=== PATIENT | female | born 1980 | race Caucasian/White ===

== ENCOUNTER 2018-01-05 08:36 | Day surgery (SDC) | payer OTHER ==
[2018-01-05 09:04] LABS: HEMATOCRIT 44.3 % (36.0-47.0); HEMOGLOBIN 14.6 g/dl (12.0-15.5); MEAN CORPUSCULAR HEMOGLOBIN 28.3 pg (27.0-33.0); MEAN CORPUSCULAR VOLUME 85.9 fl (80.0-96.0); PLATELET COUNT, AUTOMATED 235 10^3/uL (150-450); RED BLOOD COUNT 5.16 10^6/uL (4.00-5.40); RED CELL DISTRIBUTION WIDTH 12.8 % (11.5-14.5); WHITE BLOOD COUNT 5.9 10^3/uL (4.0-10.0)
[2018-01-05] MEDS ORDERED: dexameTHASONE 4 MG/ML 1ML VIAL (J1100) As Ordered (09:07)
[2018-01-05] MEDS ORDERED: ONDANSETRON 4MG/2ML VIAL (J2405) As Ordered (09:07)
[2018-01-05] MEDS ORDERED: LIDOCAINE 2% INJ 100 MG/5 ML SDV (FOR ANES.) As Ordered (09:07)
[2018-01-05] MEDS ORDERED: PROPOFOL 200 MG/20 ML VIAL As Ordered (09:07)
[2018-01-05] MEDS ORDERED: fentaNYL 100 MCG/2 ML INJECTION (J3010) As Ordered (09:08)
[2018-01-05] MEDS ORDERED: MIDAZOLAM INJ 2 MG/2 ML VIAL (J2250) As Ordered (09:08)
[2018-01-05 09:36] LABS: CONTROL LINE UCG INT CTR LINE PRESENT; URINE PREG TEST NEGATIVE (NEGATIVE)
[2018-01-05] MEDS: LR 1,000 ML IV (10:00)
[2018-01-05] MEDS: ACETAMINOPHEN 650 MG SUPP As Ordered (11:10)
[2018-01-05] MEDS: IODINE STRONG SOLN 15 ML BTL As Ordered (11:16)
[2018-01-05] MEDS: LIDOCAINE W/EPINEPHRINE 1% 20ML VIAL As Ordered (11:21)
[2018-01-05] MEDS ORDERED: METOCLOPRAMIDE INJ 10MG/2ML VIAL (J2765) IV (12:00)
[2018-01-05] MEDS ORDERED: LR 1,000 ML IV (12:00)
[2018-01-05] MEDS ORDERED: PERCOCET 5MG/325MG TAB PO ×2 (12:00→12:15)
[2018-01-05] MEDS: IBUPROFEN 800 MG TAB PO (12:00)
[2018-01-05] MEDS ORDERED: fentaNYL 100 MCG/2 ML INJECTION (J3010) IV (12:00)
[2018-01-05] MEDS: ONDANSETRON 4MG/2ML VIAL (J2405) IV (12:05)
== END 2018-01-05 13:09 | disposition home or self-care (01) ==
LOC: M SDC 08:36
DX: N85.00 Endometrial hyperplasia, unspecified (principal); Z79.899 Other long term (current) drug therapy
CPT/HCPCS: 57522

== ENCOUNTER → 2018-07-17 | Outpatient (CLI) | payer OTHER ==
[~2018-07-17] MED LIST: CLAR1TAB13 PO; COLA100C5 PO; GLUC500C5 PO; IBUP80TA PO; MULTCAP PO; OXYC1TAB23 PO; PRENTAB74 PO; TUMS500C PO; [UNRECOGNIZED DRUG - CODE] XX
--- NOTE | 2018-07-17 11:40 | REP ---
RIGHT KNEE: Six views of the right knee performed. There is no acute fracture or dislocation. No intrinsic osseous pathology is seen. Joint spaces are unremarkable. There is no joint effusion. IMPRESSION: Negative right knee series. Electronically Signed by Mayo Peters MD 07/17/2018 03:26 P
== END ==
LOC: M WUC 11:07
PROVIDERS: ATTEND Physician Assistant
DX: M25.561 Pain in right knee (principal)

== ENCOUNTER 2018-09-11 15:03 | Emergency (ER) | payer OTHER ==
[~2018-09-11] VITALS: Ht 149.9 cm; Wt 63.2 kg
[2018-09-11] MEDS ORDERED: NS 1,000 ML IV ONE (15:30)
[2018-09-11 15:46] LABS: BASO % 0.3 % (0.0-1.0); EOS # 0.1 10^3/uL (0.0-0.50); EOS % 0.8 % (0.0-3.0); HEMATOCRIT 43.6 % (36.0-47.0); HEMOGLOBIN 14.6 g/dl (12.0-15.5); LYMPH # 1.4 10^3/uL (1.5-4.5); LYMPH % 13.6 % (24.0-44.0); MEAN CORPUSCULAR HEMOGLOBIN 29.1 pg (27.0-33.0); MEAN CORPUSCULAR HGB CONC 33.5 g/dl (32.0-36.5); MEAN CORPUSCULAR VOLUME 86.9 fl (80.0-96.0); MONO # 0.4 10^3/uL (0.0-0.8); NEUTROPHILS # 8.2 10^3/uL (1.8-7.7); PLATELET COUNT, AUTOMATED 218 10^3/uL (150-450); RED BLOOD COUNT 5.02 10^6/uL (4.00-5.40); WHITE BLOOD COUNT 10.1 10^3/uL (4.0-10.0)
[2018-09-11 16:02] LABS: HCG, SERUM QUALITATIVE NEGATIVE (NEGATIVE)
[2018-09-11 16:11] LABS: ALBUMIN 3.8 GM/DL (3.2-5.2); ALT/SGPT 25 U/L (12-78); BILIRUBIN,TOTAL 0.4 MG/DL (0.2-1.0); BLOOD UREA NITROGEN 11 MG/DL (7-18); CALCIUM LEVEL 8.3 MG/DL (8.5-10.1); CARBON DIOXIDE LEVEL 26 MEQ/L (21-32); CHLORIDE LEVEL 108 MEQ/L (98-107); CREATININE FOR GFR 0.76 MG/DL (0.55-1.30); GLOMERULAR FILTRATION RATE > 60.0 (>60); GLUCOSE, FASTING 96 MG/DL (70-100); POTASSIUM SERUM 3.3 MEQ/L (3.5-5.1); SODIUM LEVEL 142 MEQ/L (136-145); TOTAL PROTEIN 8.2 GM/DL (6.4-8.2)
[2018-09-11] MEDS ORDERED: MECLIZINE 25 MG TABLET PO ONE (16:45)
[2018-09-11] MEDS ORDERED: MECL-68 PO (17:32)
[2018-09-11 17:37] VITALS: BP 153/82
--- NOTE | 2018-09-11 21:09 | ECGEPIP ---
[facility] - ED Test Date: 2018-09-11 Pat Name: NEVAEH RIVERA Department: Room: - Gender: Female [employer]: lotus : 1980 Requested By: Clara Short Order Number: [id number] Reading MD: Clara Short Measurements Intervals [place] Rate: 73 P: 27 NH: 142 QRS: 1 QRSD: 93 T: 31 QT: 391 QTc: 434 Interpretive Statements SINUS RHYTHM WITH SINUS ARRHYTHMIA No prior Electronically Signed on 09-11-2018 21:09:04 EDT by Clara Short
== END 2018-09-11 17:41 | disposition home or self-care (01) ==
LOC: EDBD 15:03 → M ED 15:03
DX: R42 Dizziness and giddiness (principal); Z79.899 Other long term (current) drug therapy; Z91.048 Other nonmedicinal substance allergy status

== ENCOUNTER 2019-04-18 14:09 | Emergency (ER) | payer OTHER ==
[~2019-04-18] VITALS: Ht 149.9 cm; Wt 60.8 kg
[~2019-04-18 14:09] MED LIST changes: +MECL-68 PO
[2019-04-18 14:10] VITALS: BP 138/78
== END 2019-04-18 16:22 | disposition left against medical advice (07) ==
LOC: M ED 14:09
DX: Z53.21 Procedure and treatment not carried out due to patient leaving prior to being seen by health care provider (principal)

== ENCOUNTER 2019-05-09 21:24 | Emergency (ER) | payer OTHER ==
[~2019-05-09] VITALS: Ht 149.9 cm; Wt 62.5 kg
[~2019-05-09 21:24] MED LIST changes: -MECL-68 PO; +MECL1TAB31 PO
[2019-05-09 21:25] VITALS: BP 154/85
[2019-05-09] MEDS ORDERED: MUCI600T31 PO (23:04)
[2019-05-09] MEDS ORDERED: guaiFENesin ER 600 MG TAB PO ONE (23:15)
[2019-05-09] MEDS ORDERED: ALBUTEROL 90 MCG/ACT 8GM HFA INHALER INH ONE (23:15)
--- NOTE | 2019-05-10 01:19 | REP ---
Clinical: Productive cough. Technique: PA and lateral. Comparison: None. Findings: Lingular atelectasis/early infiltrate is appreciated and should be correlated clinically. Remainder of lung parks are clear. No effusion. No pneumothorax. Mediastinum and cardiac silhouette normal. Skeletal structures intact. Impression: Lingular atelectasis/infiltrate. Follow-up to resolution. Electronically Signed by Mars Pike MD 05/10/2019 01:11 A
--- NOTE | 2019-05-11 09:43 | ED PDOC ---
Post-Departure Follow-Up kellee garcia faxed formla report of cxr for fu savannag Ernestina Rodriguez MD May 11, 2019 09:43
== END 2019-05-09 23:18 | disposition home or self-care (01) ==
LOC: M ED 21:24
DX: J20.9 Acute bronchitis, unspecified (principal); J98.11 Atelectasis; Z91.048 Other nonmedicinal substance allergy status; R05 Cough; R06.02 Shortness of breath

== ENCOUNTER → 2019-06-10 | Outpatient (CLI) | payer OTHER ==
[~2019-06-10] MED LIST changes: +MUCI600T31 PO
--- NOTE | 2019-06-10 17:27 | REP ---
CHEST, TWO VIEWS: Two views of the chest are performed. COMPARISON: 05/09/2019. The previously noted lingular infiltrate/atelectasis has improved. However, there is residual opacity. Right lung remains clear. Heart is normal in size. Mediastinal silhouette is unchanged. Visualized osseous structures are unremarkable. IMPRESSION: Improved lingular infiltrate/atelectasis with mild residual. Recommend continued followup to resolution. If the density does not completely resolve, CT of the chest would be recommended. Electronically Signed by Mayo Peters MD 06/11/2019 08:18 P
== END ==
LOC: M RAD 14:52
PROVIDERS: ATTEND Nurse Practitioner Family
DX: R91.8 Other nonspecific abnormal finding of lung field (principal)

== ENCOUNTER → 2019-06-24 | Outpatient (CLI) | payer OTHER ==
--- NOTE | 2019-06-24 19:42 | REP ---
PA and lateral chest for follow up of lingular infiltrate: Comparisons are 05/09/2019 and 06/10/2019. There is persisting density in the lingular segment of the left upper lobe that has improved from 05/09/2019 but is unchanged from 06/10/2019. The remainder the lung parks are clear. No pleural effusions. The cardiac size is normal. The warner, mediastinum, skeletal structures are unremarkable. Impression: Persisting density in the lingular segment of the left upper lobe, unchanged from 06/10/2019. Electronically Signed by Mayo Garcia MD 06/24/2019 07:34 P
== END ==
LOC: M RAD 14:23
PROVIDERS: ATTEND Nurse Practitioner Family
DX: J18.9 Pneumonia, unspecified organism (principal)

== ENCOUNTER → 2019-07-04 | Outpatient (CLI) | payer OTHER ==
--- NOTE | 2019-07-04 20:56 | REP ---
Clinical: Left lingular nodule on x-ray. Comparison: X-ray dated 06/24/2019. Technique: Axial noncontrast images from the thoracic inlet to the upper abdomen with coronal and sagittal re-formations. Findings: Small focus of residual atelectasis/consolidation involving the lingula is again noted appears somewhat decreased when correlated with prior chest x-ray findings through 05/09/2019. Minimal scarring in the medial right middle lobe. No further consolidation, nodule or mass lesion. No pleural effusion. No pneumothorax. Tracheobronchial tree is patent. No obvious adenopathy. The mediastinum is normal. Musculoskeletal structures are intact. Impression: Small residual focus of atelectasis/consolidation in the lingula which appears to be somewhat decreased as compared to prior x-ray examinations. Electronically Signed by Mars Pike MD 07/04/2019 08:47 P
== END ==
LOC: M RAD 14:34
PROVIDERS: ATTEND Nurse Practitioner Family
DX: R91.1 Solitary pulmonary nodule (principal)

== ENCOUNTER 2020-03-27 08:27 | Emergency (ER) | payer OTHER ==
[~2020-03-27] VITALS: Ht 149.9 cm; Wt 61.4 kg
--- NOTE | 2020-03-27 09:36 | REP ---
INDICATION: low back pain after fall. COMPARISON: None. TECHNIQUE: Five views. FINDINGS: Five views of the lumbar spine show preserved vertebral body heights and normal alignment. Pedicles and posterior elements are intact. There is no evidence of spondylolysis or spondylolisthesis. Disc spaces are maintained. Tubal ligation clamps are noted in the pelvis. Psoas margins are symmetric. Sacrum and SI joints are intact as visualized. There is a minimal levoconvex curve on the frontal view in the lumbar spine. IMPRESSION: Minimal levoconvex curve on the AP radiograph. Otherwise unremarkable lumbar spine series. No fracture or collapse. <Electronically signed by Uday Pinedo > 03/27/20 [id number]
[2020-03-27] MEDS ORDERED: NAPR-837 PO (09:51)
[2020-03-27] MEDS ORDERED: CYCL-707 PO (09:51)
[2020-03-27 09:56] VITALS: BP 127/94
== END 2020-03-27 10:08 | disposition home or self-care (01) ==
LOC: EDBD 08:27 → M ED 08:27
DX: S39.012A Strain of muscle, fascia and tendon of lower back, initial encounter (principal); W18.31XA Fall on same level due to stepping on an object, initial encounter; Y92.9 Unspecified place or not applicable; Y93.9 Activity, unspecified; Y99.9 Unspecified external cause status; Z79.1 Long term (current) use of non-steroidal anti-inflammatories (NSAID); Z79.899 Other long term (current) drug therapy; Z88.8 Allergy status to other drugs, medicaments and biological substances

== ENCOUNTER → 2020-03-31 | Outpatient (CLI) | payer OTHER ==
[~2020-03-31] MED LIST changes: +CYCL-707 PO; +NAPR-837 PO
--- NOTE | 2020-03-31 20:36 | REP ---
INDICATION: LUMBAGO WITH SCIATICA, RIGHT SIDE. COMPARISON: None. TECHNIQUE: There are three views. FINDINGS: There is scoliosis in the upper thoracic spine convex right with compensatory curve in the inferior cervical spine. Vertebral body heights, interspacing and alignment are normal. The facets are normally aligned. The prevertebral soft tissues are unremarkable. The odontoid view is unremarkable. IMPRESSION: Essentially negative three-view cervical spine. <Electronically signed by Mayo Garcia > 03/31/20 [id number]
--- NOTE | 2020-03-31 20:37 | REP ---
INDICATION: LUMBAGO WITH SCIATICA, RIGHT SIDE. COMPARISON: None. TECHNIQUE: There are three views. FINDINGS: There is scoliosis convex right in the upper thoracic spine and left of the thoracolumbar junction. Vertebral body heights, interspacing and alignment are otherwise normal. There is mild kyphosis. The pedicles are unremarkable. IMPRESSION: Scoliosis and mild kyphosis. Otherwise, negative thoracic spine. <Electronically signed by Mayo Garcia > 03/31/20 [id number]
--- NOTE | 2020-03-31 20:39 | REP ---
INDICATION: LUMBAGO WITH SCIATICA, RIGHT SIDE. COMPARISON: None. TECHNIQUE: There are two views. FINDINGS: There is mild lumbar scoliosis convex left. Vertebral body heights, interspacing and alignment are normal. Mineralization is normal. The pedicles are unremarkable. Lumbar lordosis is somewhat exaggerated. This may be positional. IMPRESSION: Scoliosis. Somewhat exaggerated lordosis, possibly positional. <Electronically signed by Mayo Garcia > 03/31/20 [id number]
== END ==
LOC: M RAD 17:21
PROVIDERS: ATTEND Chiropractor
DX: M54.41 Lumbago with sciatica, right side (principal); M99.03 Segmental and somatic dysfunction of lumbar region; M50.33 Other cervical disc degeneration, cervicothoracic region; M41.85 Other forms of scoliosis, thoracolumbar region

== ENCOUNTER → 2020-07-06 | Outpatient (CLI) | payer OTHER ==
--- NOTE | 2020-07-06 10:08 | REPVR ---
PROCEDURE INFORMATION: Exam: MR Lumbar Spine Without Contrast Exam date and time: 07/06/2020 8:29 AM Age: 39 years old Clinical indication: Pain; Lumbago; Additional info: Lumbago with sciatica TECHNIQUE: Imaging protocol: Multiplanar magnetic resonance images of the lumbar spine without intravenous contrast. COMPARISON: MT Spine, Lumbosacral, partial 03/31/2020 5:33 PM FINDINGS: Vertebrae: Unremarkable. Spinal cord: Normal signal. No cord compression. L1-L2: There is disc desiccation. L2-L3: No significant disc disease. No significant spinal canal stenosis. No neural foraminal stenosis. L3-L4: No significant disc disease. No significant spinal canal stenosis. No neural foraminal stenosis. L4-L5: No significant disc disease. No significant spinal canal stenosis. No neural foraminal stenosis. L5-S1: There is disc desiccation. There is a small left foraminal disc herniation. Soft tissues: Unremarkable. IMPRESSION: Small left foraminal disc herniation at L5/S1. Please see details above. Electronically signed by: Tirso Roger On 07/06/2020 10:08:18 AM
== END ==
LOC: M RAD 07:41
PROVIDERS: ATTEND Chiropractor
DX: M54.5 Low back pain (principal)

== ENCOUNTER → 2020-11-18 | Outpatient (REF) ==
--- NOTE | 2020-11-18 16:00 | REP ---
INDICATION: PAIN. COMPARISON: 03/31/2020 TECHNIQUE: AP and lateral views only FINDINGS: Vertebral body height and alignment is within normal limits. The disc spaces are symmetric and well maintained status quo. The pedicles are intact bilaterally status quo. There is a slight levoconvex lumbar curve status quo. IMPRESSION: Stable exam. No acute abnormality. <Electronically signed by Hollis Haywood > 11/18/20 [id number]
--- NOTE | 2020-11-18 16:18 | REP ---
INDICATION: PAIN COMPARISON: 07/17/2018 TECHNIQUE: Five views FINDINGS: The compartments are symmetric and well maintained. There is no acute fracture or destructive osseous lesion. IMPRESSION: Within normal limits. No significant change from the prior exam. <Electronically signed by Hollis Haywood > 11/18/20 [id number]
== END ==
LOC: M PLAIMG 14:38
PROVIDERS: ATTEND Internal Medicine
DX: M54.9 Dorsalgia, unspecified (principal); M25.561 Pain in right knee

== ENCOUNTER → 2020-12-31 | Outpatient (REF) | payer OTHER ==
[2020-12-31 17:28] LABS: BASO % 0.3 % (0.0-1.0); EOS # 0.1 10^3/uL (0.0-0.5); HEMATOCRIT 42.8 % (36.0-47.0); LYMPH # 1.7 10^3/uL (1.5-5.0); LYMPH % 17.9 % (24.0-44.0); MEAN CORPUSCULAR HEMOGLOBIN 28.2 pg (27.0-33.0); MEAN CORPUSCULAR HGB CONC 32.7 g/dl (32.0-36.5); MEAN CORPUSCULAR VOLUME 86.1 fl (80.0-96.0); MONO # 0.7 10^3/uL (0.0-0.8); MONO % 7.6 % (2.0-8.0); NEUTROPHILS # 6.7 10^3/uL (1.5-8.5); NEUTROPHILS % 72.9 % (36.0-66.0); PLATELET COUNT, AUTOMATED 271 10^3/uL (150-450); RED BLOOD COUNT 4.97 10^6/uL (4.00-5.40); WHITE BLOOD COUNT 9.2 10^3/uL (4.0-10.0)
[2020-12-31 17:54] LABS: BLOOD UREA NITROGEN 15 MG/DL (7-18); CALCIUM LEVEL 8.8 MG/DL (8.5-10.1); CARBON DIOXIDE LEVEL 26 MEQ/L (21-32); CHLORIDE LEVEL 102 MEQ/L (98-107); CHOLESTEROL LEVEL 159 MG/DL (<200); CREATININE FOR GFR 0.73 MG/DL (0.55-1.30); GLOMERULAR FILTRATION RATE > 60.0 (>58); GLUCOSE, FASTING 64 MG/DL (70-100); HDL CHOLESTEROL 53 MG/DL (>40); LDL CHOLESTEROL 93 MG/DL (<100); NON-HDL-C 106 MG/DL; POTASSIUM SERUM 3.8 MEQ/L (3.5-5.1); SODIUM LEVEL 138 MEQ/L (136-145); TRIGLYCERIDES LEVEL 66 MG/DL (<150)
== END ==
LOC: M LAB REF 16:31
PROVIDERS: ATTEND Registered Nurse
DX: N91.2 Amenorrhea, unspecified (principal); E87.6 Hypokalemia; E83.51 Hypocalcemia

== ENCOUNTER → 2021-01-07 | Outpatient (CLI) | payer OTHER ==
--- NOTE | 2021-01-07 17:12 | REP ---
INDICATION: PAIN. COMPARISON: Comparison right knee radiographs are from November 18, 2020. TECHNIQUE: Six views of the right knee. FINDINGS: Six views of the right knee demonstrate normal bones, joints, and soft tissues. No fracture or subluxation is seen. No opaque foreign body noted. IMPRESSION: Negative right knee series. <Electronically signed by Uday Pinedo > 01/07/21 [id number]
== END ==
LOC: M WUC 14:49
PROVIDERS: ATTEND Registered Nurse
DX: M25.561 Pain in right knee (principal)

== ENCOUNTER → 2021-02-15 | Outpatient (CLI) | payer OTHER ==
--- NOTE | 2021-02-15 15:14 | REPMRS ---
Patient History The patient states she had a clinical breast examon 01-06-21. Patient had first child at age 31. No known family history of cancer. No Hormone Replacement Therapy Patient states no breast complaints today. Patient has signed MRS History Sheet. Digital Woman Screen Mammo: February 15, 2021 - Exam #: [id number] Bilateral CC and MLO view(s) were taken. Technologist: Shiloh Valencia Manager Pricing FINDINGS: There are scattered fibroglandular densities. Screening. Digital screening (2D) mammography was performed bilaterally. Additionally, breast tomosynthesis (3D) mammography was perfomed bilaterally in the CC and MLO projections. Today's examination is the initial screening examination. By history, the patient has no complaints of a palpable breast abnormality or other significant breast complaints. The breasts are symmetric in size and shape. There are no masses. There is no internal architectural distortion.Benign appearing calcifications are seen. There are no suspicious microcalcific clusters. Skin thickening or nipple retraction is not present. IMPRESSION: BI-RADS Category 2- Benign Findings. There is no evidence of malignant alteration of the breasts. Followup examination recommended in one year. The [place] volumetric breast density category is B, there are scattered areas of fibroglandular densities. This mammogram was read with the assistance of [place],an FDA approved computer aided detection system for mammography. The lifetime Tyrer-Cuzick score is 14.7 % Negative x-ray reports should not delay surgical consultation if a dominant or clinically suspicious mass is present. Not all breast cancers can be identified by mammography. Therefore, we recommend that you continue to perform regular breast self-examination and physical examination and then promptly contact your physician of any concerns or changes. Adenosis and dense breasts may obscure an underlying neoplasm. Assessment: BI-RADS/ACR category 2 mammogram. Benign Findings. Recommendation Routine screening mammogram of both breasts in 1 year. Electronically Signed By: Hollis Haywood DO 02/15/21 [id number]
== END ==
LOC: M WHC 14:26
PROVIDERS: ATTEND Obstetrics & Gynecology
DX: Z12.31 Encounter for screening mammogram for malignant neoplasm of breast (principal)

== ENCOUNTER → 2021-03-10 | Outpatient (CLI) | payer OTHER ==
[~2021-03-10] MED LIST changes: +PROHANCE 279.3MG/ML 15ML VIAL ONE
--- NOTE | 2021-03-10 10:22 | REP ---
INDICATION: PAIN IN RIGHT KNEE. COMPARISON: 09/07/2018 also before and after intravenous gadolinium TECHNIQUE: Pre and post contrast 3T MRI of the right knee was performed utilizing various sequences. Gadolinium utilized: 12 cc ProHance FINDINGS: Once again, there is an oval-shaped 1.4 x 1.2 x 0.7 cm sized enhancing nodule within the superior apex of Hoffa's fat pad which appears unchanged. The anterior and posterior horns of the medial meniscus are within normal limits. The anterior and posterior horns of the lateral meniscus are within normal limits. The anterior and posterior cruciate ligaments are intact. The quadriceps and patellar tendons are intact. The medial and lateral collateral ligaments are intact. The medial and lateral patellar retinacula are intact. The articular cartilages are within normal limits. There is no joint effusion or Presley's cyst. The marrow signal is within normal limits. IMPRESSION: There has been no significant change compared to the prior exam. There is no evidence of internal derangement. The lesion seen in Hoffa's fat pad is unchanged. <Electronically signed by Hollis Haywood > 03/10/21 101
== END ==
LOC: M PLAIMG 07:47
PROVIDERS: ATTEND Orthopaedic Surgery
DX: M25.561 Pain in right knee (principal)

== ENCOUNTER → 2022-02-16 | Outpatient (CLI) | payer OTHER ==
[~2022-02-16] MED LIST changes: -PROHANCE 279.3MG/ML 15ML VIAL ONE
== END ==
LOC: M WHC 15:52
PROVIDERS: ATTEND Obstetrics & Gynecology
DX: Z12.31 Encounter for screening mammogram for malignant neoplasm of breast (principal)

== ENCOUNTER → 2023-05-25 | Outpatient (CLI) | payer OTHER ==
[~2023-05-25] MED LIST changes: +MECL-209 PO; -MECL1TAB31 PO
== END ==
LOC: M WHC 15:14
PROVIDERS: ATTEND Obstetrics & Gynecology
DX: Z12.31 Encounter for screening mammogram for malignant neoplasm of breast (principal)

== ENCOUNTER → 2024-03-05 | Outpatient (CLI) | payer OTHER | LOC: M WUC 11:42 | PROVIDERS: ATTEND Nurse Practitioner Family | DX: M25.512 Pain in left shoulder (principal) ==

== ENCOUNTER → 2024-06-18 | Outpatient (CLI) | payer OTHER | LOC: M WHC 07:52 | PROVIDERS: ATTEND Obstetrics & Gynecology | DX: Z12.31 Encounter for screening mammogram for malignant neoplasm of breast (principal) ==

== ENCOUNTER → 2025-03-30 | Outpatient (REF) | payer OTHER ==
[2025-03-30 13:58] LABS: APPEARANCE, URINE CLEAR (CLEAR); BACTERIA, URINE AUTO NEGATIVE (NEGATIVE); BILIRUBIN, URINE AUTO NEGATIVE (NEGATIVE); BLOOD, URINE BLOOD NEGATIVE (NEGATIVE); GLUCOSE, URINE (UA) AUTO NEGATIVE (NEGATIVE); KETONE, URINE AUTO NEGATIVE (NEGATIVE); LEUKOCYTE ESTERASE, URINE AUTO NEGATIVE (NEGATIVE); NITRITE, URINE AUTO NEGATIVE (NEGATIVE); PROTEIN, URINE AUTO NEGATIVE (NEGATIVE); RBC, URINE AUTO 0 /HPF (0-3); SPECIFIC GRAVITY URINE AUTO 1.009 (1.002-1.035); SQUAMOUS EPITHELIAL CELL UR AU 1 /HPF (0-6); UROBILINOGEN, URINE AUTO 0.2 mg/dL (0.0-2.0); WBC, URINE AUTO 1 /HPF (0-3)
== END ==
LOC: M LAB REF 11:22
PROVIDERS: ATTEND Physician Assistant
DX: N39.0 Urinary tract infection, site not specified (principal)